=== PATIENT | female | born 1965 | race Caucasian/White ===

== ENCOUNTER 2021-09-09 21:09 | Emergency (ER) | payer OTHER, SELFPAY ==
--- NOTE | ~2021-09-09 | CT_ITS ---
EXAMINATION: CT HEAD WITHOUT CONTRAST CLINICAL INFORMATION: Fall, headache COMPARISON: None TECHNIQUE: Contiguous axial imaging was performed from the skull base to vertex without intravenous administration of contrast. This CT examination was performed using dose optimization techniques as appropriate, variously including the following: *Automated exposure control *Adjustment of mA and/or kV according to patient size (this includes techniques or standardized protocols for targeted exams where dose is matched to indication/reason for exam; i.e. extremities or head) *Use of iterative reconstruction technique DLP: 669 mGy-cm FINDINGS: There is no evidence of acute intracranial hemorrhage or territorial infarction. No abnormal mass effect or midline shift is seen. Arthur to white matter differentiation is well preserved. No extra-axial fluid collections are identified. The ventricles are normal in size. There is no abnormal attenuation within the brain parenchyma. No acute fracture is seen. There is minimal subcutaneous edema in the high posterior right scalp. The mastoid air cells and visualized portions of the paranasal sinuses are well aerated. CT/CT head/brain wo con IMPRESSION: No acute intracranial pathology.
[2021-09-09 21:49] VITALS: BP 145/79; PULSE 80; RESP 16; TEMP 37.1; O2SAT 100; BMI 40.3
[2021-09-10 02:00] VITALS: BP 141/65; PULSE 64; RESP 16; TEMP 36.6; O2SAT 97
--- NOTE | 2021-09-10 02:14 | ED.HEATRA ---
HPI - Head Injury General Chief complaint: Head Injury Stated complaint: 2/6 fell and hit head Time Seen by Provider: 09/10/21 01:47 Source: patient Mode of arrival: ambulatory Limitations: no limitations History of Present Illness Complaint: head injury Onset (ago): day(s) (Monday) Mechanism of Injury: fall Place: home Loss of Consciousness: no Location of injury: occipital Severity: moderate Quality: aching Radiation: none Other Injuries: none Associated symptoms: nausea and other (dizziness, tired, did not rest has been working) Related Data Previous Rx's Medication Instructions Recorded ondansetron 4 mg disintegrating 4 mg PO Q8H PRN #20 tab 09/10/21 tablet Allergies Allergy/AdvReac Type Severity Reaction Status Date / Time No Known Allergies Allergy Verified 09/09/21 21:49 Review of Systems Review of Systems: Constitutional : No Fever, No Chills, No Fatigue ENT/Mouth : No sore throat, No Rhinorrhea Eyes: No Eye Pain, No Swelling, No Redness Cardiovascular : No Chest Pain, No SOB, No Dyspnea on Exertion Respiratory : No Cough, No Sputum Gastrointestinal : pos Nausea, No Vomiting, No Diarrhea, No abdominal Pain Genitourinary : No Dysuria, No Urinary Frequency, No Hematuria, Musculoskeletal : No joint pain, No Myalgias, No Joint Swelling Skin : No Skin Lesions, No rash Neuro : No Weakness, No Numbness, pos Dizziness, positive Headache Psych : No Anxiety/Panic, No Depression Heme/Lymph: No Bruising, No Bleeding,No Lymphadenopathy Endocrine : No Polyuria, No Polydipsia All other systems reviewed and are negative [facility] Past Medical History Medical History No known health problems Social History Social History (Updated 09/10/21 @ 02:47 by Elise Perrin DO) Patient Tobacco Use Status: Never used Tobacco Advance Directives: No Patient : No Physical Exam Vital Signs: Vital Signs: Last Vital Signs Temp 97.9 F 09/10/21 02:00 Pulse 64 09/10/21 02:00 Resp 16 09/10/21 02:00 BP 141/65 H 09/10/21 02:00 Pulse Ox 97 09/10/21 02:00 BMI result Body Mass Index 40.3 Appearance: Alert. Oriented X3. No acute distress. Eyes: Pupils equal, round and reactive to light. no nystagmus ENT: Pharynx normal. no toribio signs , posterior R parietal scalp healing abrasion noted Neck: Normal inspection. Neck supple. no midline ttp CVS: Normal heart rate and rhythm. Pulses normal. Respiratory: No respiratory distress. Breath sounds normal. Abdomen: Atraumatic Skin: Skin warm and dry. Normal skin color. Normal skin turgor. Extremities: Normal gait and ROM Neuro: Oriented X 3. No motor deficit. No sensory deficit. MDM - Head Injury MDM Narrative Medical decision making narrative: Pleasant 56 yo woman who comes in after isolated head injury on Monday she does not take blood thinners she did not have LOC - she struck head and did not receive care but since then she has noted increase in headaches, fatigue, nausea. She has not stopped working or undergone brain rest. At this time will obtain imaging to rule out trauma but suspect post concussive syndrome. We did discuss brain rest. Discharge Plan Discharge Clinical Impression: Postconcussion syndrome Concussion without loss of consciousness Qualifiers: Encounter type: initial encounter Qualified Code(s): S06.0X0A - Concussion without loss of consciousness, initial encounter Patient Disposition: Home, Self-Care Instructions: Concussion (ED), Post Concussion Syndrome (ED) Additional Instructions: return to ED for any worsening symptoms or concerns There is no evidence of acute intracranial hemorrhage or territorial infarction. No abnormal mass effect or midline shift is seen. Arthur to white matter differentiation is well preserved. No extra-axial fluid collections are identified. The ventricles are normal in size. There is no abnormal attenuation within the brain parenchyma. No acute fracture is seen. There is minimal subcutaneous edema in the high posterior right scalp. The mastoid air cells and visualized portions of the paranasal sinuses are well aerated. ? CT/CT head/brain wo con IMPRESSION: No acute intracranial pathology. Prescriptions: New ondansetron 4 mg tablet,disintegrating 4 mg PO Q8H PRN (Reason: nausea and vomiting) Qty: 20 0RF Referrals: Eligio Mcfarland MD [Primary Care Provider] - 5 days (if not better)
== END 2021-09-10 03:30 | disposition home or self-care (01) ==
PROVIDERS: Emergency Provider Emergency Medicine; PCP Internal Medicine
DX: S06.0X0A Concussion without loss of consciousness, initial encounter (principal); W00.1XXA Fall from stairs and steps due to ice and snow, initial encounter; Y93.01 Activity, walking, marching and hiking; Y92.038 Other place in apartment as the place of occurrence of the external cause; Y99.9 Unspecified external cause status
CPT/HCPCS: 70450; 99284

== ENCOUNTER 2023-07-15 23:31 | Emergency (ER) | payer OTHER, SELFPAY ==
--- NOTE | ~2023-07-15 | XR_ITS ---
EXAMINATION: XR CHEST CLINICAL INFORMATION: Cough COMPARISON: None available. TECHNIQUE: Frontal view of the chest was obtained. FINDINGS: Normal symmetric lung volumes. Streaky opacity, right lung base. No pleural effusion. No pneumothorax. Cardiomediastinal silhouette and pulmonary vascularity are within normal limits. No acute osseous abnormalities. XR/XR chest 1V IMPRESSION: Streaky opacity at the right lung base favors atelectasis although developing infiltrate could also have this appearance.
[2023-07-15 23:36] VITALS: BP 155/77; PULSE 96; RESP 18; TEMP 36.9; O2SAT 97; BMI 42.1
--- NOTE | 2023-07-16 00:13 | MHC.EDTECH ---
Patient brought into triage area,SARS/FLU/RSV,and Strep obtained and sent to lab, Patient went to XRAY
[2023-07-16 00:20] LABS: IDNOW Serial# 08D9AD1C; Strep A Nucleic Acid Negative (Negative)
[2023-07-16 00:51] LABS: Influenza A PCR NEGATIVE (Negative); Influenza B PCR NEGATIVE (Negative); Resp Syncy Virus RNA Qual PCR NEGATIVE (Negative); SARS COV2 PCR INHOUSE POSITIVE (Negative)
--- NOTE | 2023-07-16 04:44 | PC.NURSE ---
This RN went in room to check on pt and see if anything was needed. Pts spouse declined and pt went into bathroom. Declined any needs at this time. This RN apologized for he wait.
[2023-07-16 04:53] VITALS: BP 140/70; PULSE 83; RESP 18; TEMP 36.5; O2SAT 94
--- NOTE | 2023-07-16 04:53 | ED_ITS ---
HPI - URI/Sore Throat General Chief Complaint: Upper Respiratory Symptoms Stated Complaint: cough Time Seen by Provider: 07/16/23 04:52 Source: patient and family () Mode of arrival: ambulatory Limitations: no limitations History of Present Illness HPI Narrative: 58-year-old female who presents emergency department for evaluation of cough x8 weeks. Patient states she has cough variant asthma and GERD and has been coughing for 8 weeks. She states she completed a 10 day course of antibiotics which did improve her symptoms but over the last 2 days she states that her cough is gotten worse. She states she min the coughs at night. She states that the cough is occasionally productive of light green sputum. She denied chest pain, fever, chills, rhinorrhea, sore throat, shortness of breath or dyspnea on exertion. She also denied myalgias and arthralgias Related Data Previous Rx's Medication Instructions Recorded ondansetron 4 mg disintegrating 4 mg PO Q8H PRN nausea and 09/10/21 tablet vomiting #20 tabs nirmatrelvir 300 mg (150 mg See Rx Instructions PO .COMPLEX 07/16/23 x2)-ritonavir 100 mg tablet,dose #30 ea pack (Paxlovid) Allergies Allergy/AdvReac Type Severity Reaction Status Date / Time No Known Allergies Allergy Verified 07/15/23 23:47 Review of Systems Review of Systems: Yes all other systems are reviewed and are negative [facility] Past Medical History [facility] Narrative: Past medical history: Asthma, GERD, hiatal hernia. Social history: She denies tobacco, alcohol and drug use Medical History No known health problems Social History Social History Alcohol intake: never Patient Tobacco Use Status: Never used Tobacco Smoked in Last 30 Days: No Use of substances other than those prescribed or required for medical reasons: No Advance Directives: No Advance Directives Information Provided: No Physical Exam Vital Signs: Vital Signs: Last Vital Signs Temp 98.5 F 07/15/23 23:36 Pulse 96 07/15/23 23:36 Resp 18 07/15/23 23:36 BP 155/77 H 07/15/23 23:36 Pulse Ox 97 07/15/23 23:36 O2 Del Method Room Air 07/15/23 23:36 BMI result Body Mass Index 42.1 Vital signs did reveal an elevated blood pressure of 155/77 otherwise unremarkable Exam: General: Awake, alert in no distress Head: Normocephalic, atraumatic EENT: PERRL, Lids normal, sclera normal, conjunctiva normal, nose normal , ears normal, throat without erythema or exudates Neck: Supple, no adenopathy, Lung: breath sounds symmetric, no wheezing, rales or rhonchi Chest: symmetric movement, nontender Heart: regular rate and rhythm, normal S1, S2 no murmurs or rubs Abdomen: soft, non-tender, nondistended, normal bowel sounds Back: no vertebral tenderness, no CVAT Extremities: no deformities, moves all extremities symmetrically Medical Decision Making Medical Decision Making MDM Narrative: 58-year-old female history of asthma, GERD, hiatal hernia who presents emergency department for evaluation of 8 weeks of cough which improved after completing a 10 day course of antibiotics with a cough, back over the past 2 days. Cough is occasionally productive. She denied fever, chills, chest pain, shortness of breath or dyspnea on exertion. My interpretation patient's x-ray is no acute pneumonia. Radiologist noted a right-sided atelectasis but no pneumonia. Patient's RSV and influenza were negative Patient's COVID-19 was positive. Patient is requesting treatment with Paxlovid. Differential Diagnosis Differential Diagnoses: The differential diagnosis associated with the presentation includes Differential diagnosis includes was not limited to covered asthma, asthma exacerbation, pneumonia, viral syndrome, COVID-19, influenza, RSV Lab Data My interpretation patient's laboratory evaluation as follows: COVID-19 spot Labs: Lab Results 07/16/23 Range/Units 00:08 Influenza Type A (PCR) NEGATIVE (Negative) Influenza Type B (PCR) NEGATIVE (Negative) RSV RNA Qual (PCR) NEGATIVE (Negative) SARS-CoV-2 RNA (RT-PCR) POSITIVE A (Negative) S. pyogenes GrpA VISHAL Negative (Negative) Radiology Impression Discussion of test interpretation with radiology: I have reviewed the radiologist's reading. Radiologist Impression: XR chest 1V IMPRESSION: Streaky opacity at the right lung base favors atelectasis although developing infiltrate could also have this appearance. Dictated By: Brennen Mabry MD Independent Historian Clinical information obtained from an independent historian. History obtained from or confirmed by: Spouse Prescription Management I considered prescription management with: Antiviral Chronic Conditions Patient?s care impacted by: Other (Asthma) Discharge Plan Discharge Clinical Impression: COVID, COVID-19 virus infection Patient Disposition: Home, Self-Care Instructions: COVID-19 (Coronavirus Disease 2019) (ED) Additional Instructions: Your chest x-ray did not reveal any evidence for pneumonia. Your influenza and RSV tests were negative. Your COVID-19 test was positive. Take Paxlovid as prescribed. Take ibuprofen 200 mg pills, 2 pills every 6 hours as needed for pain or fever. Take Tylenol (acetaminophen) 500 mg pills, 2 pills every 6 hours as needed for pain or fever. Follow-up with your doctor in 2 days. Please return to the emergency department if your symptoms get worse or if you develop any symptoms that are concerning to you. Since you have been vaccinated against COVID, the CDC recommendation is that you isolate for 5 days however you have to have no fever for at least 24 hours before you can go back in the community. Prescriptions: New Paxlovid 300 mg (150 mg x 2)-100 mg tablets,dose pack See Rx Instructions PO .COMPLEX Qty: 30 0RF Rx Instructions: take TWO 150 mg tablets of nirmatrelvir with ONE 100 mg tablet of ritonavir twice daily for 5 days No Action ondansetron 4 mg tablet,disintegrating 4 mg PO Q8H PRN (Reason: nausea and vomiting) Qty: 20 0RF
== END 2023-07-16 05:30 | disposition home or self-care (01) ==
PROVIDERS: Emergency Provider Emergency Medicine Emergency Medical Services; PCP Internal Medicine
DX: U07.1 COVID-19 (principal); R05.9 Cough, unspecified; K21.9 Gastro-esophageal reflux disease without esophagitis
CPT/HCPCS: 0241U; 71045; 87651; 99284